=== PATIENT | male | born 2000 | race Asian ===

== ENCOUNTER 2023-09-11 14:24 | Emergency (ER) | payer OTHER ==
[2023-09-11 14:32] VITALS: O2SAT 98
--- NOTE | 2023-09-11 14:32 | ED Physician Documentation ---
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 He was already irrigated and feels okay without any visual complaint. PD PAST MEDICAL HISTORY - Allergies Allergies/Adverse Reactions: Allergies Allergy/AdvReac Type Severity Reaction Status Date / Time No Known Drug Allergies Allergy Verified 09/11/23 14:27 PD ED PE NORMAL - Vitals Vital signs reviewed: Yes - General General: Alert and oriented X 3, No acute distress - HEENT HEENT: PERRL, EOMI, Other (No fluorescein uptake on either side) - Neck Neck: Supple, no meningeal sign, No bony TTP - Neuro Neuro: Alert and oriented X 3 PD Medical Decision Making - ED course ED course: 23-year-old gentleman with chemical exposure to left greater than right eye. He is asymptomatic at this time and his vision is unaffected. He has already been irrigated. There is no fluorescein uptake. Departure - Departure Disposition: 01 Home, Self Care Clinical Impression: Chemical exposure of eye Condition: Good Instructions: ED Chemical Conjunctivitis Comments: Return if you develop new or worsening symptoms.
[2023-09-11 15:00] VITALS: BP 124/82
== END 2023-09-11 14:45 | disposition home or self-care (01) ==
LOC: ED 14:24
DX: Z77.098 Contact with and (suspected) exposure to other hazardous, chiefly nonmedicinal, chemicals (principal)
CPT/HCPCS: 99282; 99283